=== PATIENT | male | born 1955 | race Caucasian/White ===

== ENCOUNTER 2017-12-07 18:22 | Emergency (ER) | payer OTHER ==
[~2017-12-07] VITALS: Ht 177.8 cm; Wt 88.9 kg
[2017-12-07] MEDS ORDERED: FENOGLIDE40 MG (19:13)
[2017-12-08] MEDS ORDERED: LEVSIN/SL0.125 MG SL (04:27)
== END 2017-12-08 04:34 ==
LOC: ER 18:22
DX: R14.0 Abdominal distension (gaseous) (principal)

== ENCOUNTER 2018-12-16 20:11 | Emergency (ER) | payer OTHER ==
[~2018-12-16] VITALS: Ht 177.8 cm; Wt 88.9 kg
[~2018-12-16 20:11] MED LIST: FENOGLIDE40 MG; LEVSIN/SL0.125 MG SL
== END 2018-12-16 23:45 | disposition home or self-care (01) ==
LOC: ER 20:11
DX: S13.4XXA Sprain of ligaments of cervical spine, initial encounter (principal); M62.838 Other muscle spasm; V49.9XXA Car occupant (driver) (passenger) injured in unspecified traffic accident, initial encounter; Y93.89 Activity, other specified; Y92.488 Other paved roadways as the place of occurrence of the external cause; Y99.8 Other external cause status